=== PATIENT | female | born 1990 | race American Indian/Alaskan Native ===

== ENCOUNTER 2018-06-30 02:45 | Emergency (ER) | payer BC ==
[2018-06-30] MEDS ORDERED: TYLENOL PO ONE (03:29)
[2018-06-30] MEDS ORDERED: ZOFRAN ODT PO ONE (03:29)
[2018-06-30] MEDS ORDERED: TYLENOL ONE (03:35)
[2018-06-30 03:57] LABS: Basophils % (Auto) 0.4 % (0.0-1.8); Eosinophils # (Auto) 0.1 K/mm3 (0.0-0.4); Hematocrit 39.2 % (30.3-42.9); Hemoglobin 13.1 gm/dl (10.1-14.3); Lymphocytes # (Auto) 1.9 K/mm3 (1.2-5.4); Lymphocytes % (Auto) 24.5 % (13.4-35.0); Mean Corpuscular HGB Conc 33 % (30-34); Mean Corpuscular Hemoglobin 32 pg (28-32); Mean Corpuscular Volume 95 fl (79-97); Monocytes # (Auto) 0.4 K/mm3 (0.0-0.8); Monocytes % (Auto) 4.7 % (0.0-7.3); Platelet Count 226 K/mm3 (140-440); Red Blood Count 4.12 M/mm3 (3.65-5.03); Red Cell Distribution Width 13.2 % (13.2-15.2)
[2018-06-30 04:17] LABS: Alanine Aminotransferase 12 units/L (7-56); Albumin 4.1 g/dL (3.9-5); BUN/Creatinine Ratio 14; Blood Urea Nitrogen 10 mg/dL (7-17); Calcium 8.9 mg/dL (8.4-10.2); Hemolysis Index 8
[2018-06-30 05:37] LABS: Bilirubin,Urine NEG (Negative); Blood,Urine MOD (Negative); Color,Urine Yellow (Yellow); RBC,Urine > 182.0 /HPF (0.0-6.0); Urobilinogen,Urine < 2.0 mg/dL (<2.0); WBC,Urine > 182.0 /HPF (0.0-6.0)
--- NOTE | 2018-06-30 06:26 | Emergency Department Report ---
ED Abdominal Pain HPI - General Chief Complaint: Abdominal Pain Stated Complaint: ABD PAIN Time Seen by Provider: 06/30/18 06:24 Source: patient Mode of arrival: Ambulatory Limitations: No Limitations - History of Present Illness Initial Comments: 27-year-old female states she history of kidney stones. She complains of left flank pain which is not radiating. She's had no fever no chills. She complains of dysuria and urinary frequency. She denies nausea or vomiting. She is comfortable with my encounter. The flank pain is mild intermittent discomfort. MD Complaint: flank pain -: days(s) Location: L flank Radiation: none Migration to: no migration Quality: aching Consistency: intermittent Improves With: nothing Worsens With: nothing Associated Symptoms: denies other symptoms (except as above indicated) - Related Data Previous Rx's Medication Instructions Recorded Last Taken Type cefUROXime [Ceftin] 250 mg PO Q12H #20 tablet 06/30/18 Unknown Rx Allergies Allergy/AdvReac Type Severity Reaction Status Date / Time No Known Allergies Allergy Unverified 06/30/18 03:23 ED Review of Systems ROS: Stated complaint: ABD PAIN Other details as noted in HPI Constitutional: denies: chills, fever Eyes: denies: eye pain, eye discharge, vision change ENT: denies: ear pain, throat pain Respiratory: denies: cough, shortness of breath, wheezing Cardiovascular: denies: chest pain, palpitations Endocrine: no symptoms reported Gastrointestinal: denies: abdominal pain, nausea, diarrhea Genitourinary: as per HPI, dysuria, frequency. denies: urgency, discharge Musculoskeletal: denies: back pain, joint swelling, arthralgia Skin: denies: rash, lesions Neurological: denies: headache, weakness, paresthesias Psychiatric: denies: anxiety, depression Hematological/Lymphatic: denies: easy bleeding, easy bruising ED Past Medical Hx - Past Medical History Previous Medical History?: Yes Hx Asthma: Yes - Surgical History Past Surgical History?: No - Social History Smoking Status: Never Smoker Substance Use Type: None - Medications Home Medications: Home Medications Medication Instructions Recorded Confirmed Last Taken Type cefUROXime [Ceftin] 250 mg PO Q12H #20 tablet 06/30/18 Unknown Rx ED Physical Exam - General Limitations: No Limitations General appearance: alert, in no apparent distress - Head Head exam: Present: atraumatic, normocephalic - Eye Eye exam: Present: normal appearance. Absent: scleral icterus - ENT ENT exam: Present: mucous membranes moist - Neck Neck exam: Present: normal inspection. Absent: tenderness, meningismus - Respiratory Respiratory exam: Present: normal lung sounds bilaterally. Absent: respiratory distress - Cardiovascular Cardiovascular Exam: Present: regular rate, normal rhythm. Absent: systolic murmur, diastolic murmur, rubs, gallop - GI/Abdominal GI/Abdominal exam: Present: soft, normal bowel sounds. Absent: distended, tenderness, guarding, rebound, rigid - Extremities Exam Extremities exam: Present: normal inspection - Back Exam Back exam: Present: normal inspection. Absent: CVA tenderness (R), CVA tenderness (L), muscle spasm, paraspinal tenderness, vertebral tenderness - Neurological Exam Neurological exam: Present: alert, oriented X3, CN II-XII intact. Absent: motor sensory deficit - Psychiatric Psychiatric exam: Present: normal affect, normal mood - Skin Skin exam: Present: warm, dry, intact, normal color. Absent: rash ED Course Vital Signs 06/30/18 06/30/18 06/30/18 03:23 04:00 04:30 Temperature 98.2 F Pulse Rate 68 72 73 Respiratory 16 12 17 Rate Blood Pressure 107/62 96/53 90/44 O2 Sat by Pulse 98 98 99 Oximetry 06/30/18 06/30/18 06:30 07:00 Temperature Pulse Rate 70 86 Respiratory 19 20 Rate Blood Pressure 90/44 90/44 O2 Sat by Pulse 98 98 Oximetry - Reevaluation(s) Reevaluation #1: On reexamination the patient is resting comfortably 2. This certainly no signs of toxicity. Her urine will be cultured. She was given parenteral ceftriaxone. She will be referred to urology. I do not believe she has an infected kidney stone although that is always a possibility. She is given appropriate return criteria. He is referred to urology. There is no evidence of hydronephrosis. 06/30/18 11:04 ED Medical Decision Making - Lab Data Result diagrams: 06/30/18 03:46 06/30/18 03:46 Laboratory Results - last 24 hr 06/30/18 06/30/18 06/30/18 03:46 03:46 04:12 WBC 7.8 RBC 4.12 Hgb 13.1 Hct 39.2 MCV 95 MCH 32 MCHC 33 RDW 13.2 Plt Count 226 Lymph % (Auto) 24.5 Pepin % (Auto) 4.7 Eos % (Auto) 1.0 Baso % (Auto) 0.4 Lymph # 1.9 Pepin # 0.4 Eos # 0.1 Baso # 0.0 Seg Neutrophils % 69.4 Seg Neutrophils # 5.4 Sodium 139 Potassium 3.6 Chloride 101.8 Carbon Dioxide 26 Anion Gap 15 BUN 10 Creatinine 0.7 Estimated GFR > 60 BUN/Creatinine Ratio 14 Glucose 108 H Calcium 8.9 Total Bilirubin 0.20 AST 15 ALT 12 Alkaline Phosphatase 116 Total Protein 7.6 Albumin 4.1 Albumin/Globulin Ratio 1.2 HCG, Qual Negative Urine Color Urine Turbidity Urine pH Ur Specific [place] Urine Protein Urine Glucose (UA) Urine Ketones Urine Blood Urine Nitrite Urine Bilirubin Urine Urobilinogen Ur Leukocyte Esterase Urine WBC (Auto) Urine RBC (Auto) U Epithel Cells (Auto) Urine WBC Clumps 06/30/18 05:10 WBC RBC Hgb Hct MCV MCH MCHC RDW Plt Count Lymph % (Auto) Pepin % (Auto) Eos % (Auto) Baso % (Auto) Lymph # Pepin # Eos # Baso # Seg Neutrophils % Seg Neutrophils # Sodium Potassium Chloride Carbon Dioxide Anion Gap BUN Creatinine Estimated GFR BUN/Creatinine Ratio Glucose Calcium Total Bilirubin AST ALT Alkaline Phosphatase Total Protein Albumin Albumin/Globulin Ratio HCG, Qual Urine Color Yellow Urine Turbidity Cloudy Urine pH 6.0 Ur Specific [place] 1.018 Urine Protein 100 mg/dl Urine Glucose (UA) Neg Urine Ketones Neg Urine Blood Mod Urine Nitrite Neg Urine Bilirubin Neg Urine Urobilinogen < 2.0 Ur Leukocyte Esterase Lg Urine WBC (Auto) > 182.0 H Urine RBC (Auto) > 182.0 U Epithel Cells (Auto) 1.0 Urine WBC Clumps 2+ - Radiology Data Radiology results: report reviewed interpreted by me: FINDINGS: Scans of the kidneys show normal renal contours. There is normal central calyceal clustering and good preservation of the cortical thickness. There is no evidence of cyst, mass or hydronephrosis. There are a few echogenic foci in the left kidney which could represent nonobstructing calyceal stones. The views of the bladder and the region of the ureters appear normal. IMPRESSION: Probable left nephrolithiasis. No hydronephrosis. Critical care attestation.: If time is entered above; I have spent that time in minutes in the direct care of this critically ill patient, excluding procedure time. ED Disposition Clinical Impression: Left nephrolithiasis UTI (urinary tract infection) Qualifiers: Urinary tract infection type: acute pyelonephritis Qualified Code(s): N10 - Acute pyelonephritis Disposition: TO HOME OR SELFCARE Is pt being admited?: No Does the pt Need Aspirin: No Condition: Stable Instructions: Abdominal Pain (ED), Urinary Tract Infection in Women (ED), Kidney Stones (ED) Additional Instructions: It is important to follow up on urine culture. Do not hesitate to count back to the emergency department if you have increased pain, nausea vomiting either or chills. Otherwise follow-up with the urologist as referred. Prescriptions: cefUROXime [Ceftin] 250 mg PO Q12H #20 tablet Referrals: PRIMARY CAREMD [Primary Care Provider] - 3-5 Days [facility] [Provider Group] - 2-3 Days Time of Disposition: 11:06
[2018-06-30] MEDS ORDERED: XYLOCAINE 1% MPF 5 mL INFILTRATI ONE (06:59)
[2018-06-30] MEDS ORDERED: ROCEPHIN IM ONE (06:59)
[2018-06-30] MEDS ORDERED: TORADOL IM ONE (06:59)
--- NOTE | 2018-06-30 07:52 | Ultrasound Report ---
ULTRASOUND RENAL BILATERAL HISTORY: Left flank pain, hematuria. TECHNIQUE: transabdominal ultrasound with color Doppler interrogation. FINDINGS: Scans of the kidneys show normal renal contours. There is normal central calyceal clustering and good preservation of the cortical thickness. There is no evidence of cyst, mass or hydronephrosis. There are a few echogenic foci in the left kidney which could represent nonobstructing calyceal stones. The views of the bladder and the region of the ureters appear normal. IMPRESSION: Probable left nephrolithiasis. No hydronephrosis.
[2018-06-30 12:09] VITALS: BP 103/56
== END 2018-06-30 11:40 | disposition home or self-care (01) ==
LOC: ED 02:45
DX: N20.0 Calculus of kidney (principal); N10 Acute pyelonephritis; J45.909 Unspecified asthma, uncomplicated
CPT/HCPCS: 36415; 76770; 80053; 81001; 84703; 85025; 96372; 99284; J0696; J1885; Q0162